=== PATIENT | male | born 1955 | race African-American/Black ===

== ENCOUNTER 2018-07-12 11:24 | Emergency (ER) | payer OTHER ==
[~2018-07-12] VITALS: Ht 182.9 cm; Wt 93.2 kg
[2018-07-12] MEDS ORDERED: HYDR-305 PO (11:29)
[2018-07-12] MEDS ORDERED: IBUPROFEN 600 MG TABLET PO ONE (12:45)
[2018-07-12 13:02] VITALS: BP 127/93
[2018-07-12 13:03] LABS: GLUCOSE,POINT OF CARE 94 MG/DL (70-110)
== END 2018-07-12 13:04 | disposition home or self-care (01) ==
LOC: EMS 11:26
DX: S46.212A Strain of muscle, fascia and tendon of other parts of biceps, left arm, initial encounter (principal); F17.210 Nicotine dependence, cigarettes, uncomplicated; X50.0XXA Overexertion from strenuous movement or load, initial encounter; Y93.89 Activity, other specified; Y92.89 Other specified places as the place of occurrence of the external cause; Y99.8 Other external cause status
CPT/HCPCS: 82948; 99283; 99406